=== PATIENT | female | born 1985 | race Caucasian/White ===

== ENCOUNTER 2020-08-31 14:51 | Emergency (ER) | payer OTHER ==
[~2020-08-31] VITALS: Ht 160 cm; Wt 72.1 kg
[~2020-08-31 14:51] MED LIST: ERYT.5TO LEFTEYE; LEVFLO500 PO; Norco 5-325 Ta1 EACH PO; Zofran Odt4 MG SL
[2020-08-31] MEDS ORDERED: CORTISONE60 GM TOP (15:16)
== END 2020-08-31 15:19 | disposition home or self-care (01) ==
LOC: ER 14:51
DX: L23.7 Allergic contact dermatitis due to plants, except food (principal); Z88.5 Allergy status to narcotic agent
CPT/HCPCS: 99282

== ENCOUNTER 2021-01-13 12:26 | Emergency (ER) | payer OTHER ==
[~2021-01-13] VITALS: Ht 160 cm; Wt 73.5 kg
[~2021-01-13 12:26] MED LIST changes: +CORTISONE60 GM TOP
[2021-01-13] MEDS ORDERED: PROM25 PO (14:10)
== END 2021-01-13 14:22 | disposition home or self-care (01) ==
LOC: ER 12:26
DX: F07.81 Postconcussional syndrome (principal); Z88.5 Allergy status to narcotic agent
CPT/HCPCS: 70450; A9270